=== PATIENT | male | born 1955 | race Caucasian/White ===

== ENCOUNTER 2019-01-17 07:25 | Day surgery (SDC) | payer MEDICARE, OTHER ==
[~2019-01-17] VITALS: Ht 172.7 cm; Wt 129.7 kg
[~2019-01-17 07:25] MED LIST: ACET325 PO; ALBU90OI INH; ALBU90OI6 INH; ASPI81CH PO; ASTEPRO205.5 MCG/; ATOR40TA PO; Aspirin EC81 MG PO; B-121000 MC2 PO; BUDE10.22 INH; CETI5 PO; CHOL10002 PO; CYAN1000 PO; CYCL10 PO; DEXL60CA3; DICLO GEL1 EACH TOP; FLONASE ALLERG9.9 ML NS; FLUO10 PO; Flonase 0.05% N16 GM; GABA300 PO; Gabapentin600 MG PO; HYDR1TAB94 PO; LOVA40 PO; Lipitor80 MG PO; MONT10T PO; MULTI VITAMIN1 EACH PO; Norco 10-325 T1 EACH PO; PANT40 PO; PROBIOTIC1 EAC1 PO; PROBIOTICS; Percocet 5-3251 EACH PO; Prevacid15 M2 PO; TERA5 PO; VITAMIN D-32000 UNIT PO; ZYRTEC10 M1 PO
[2019-01-17] MEDS ORDERED: Diovan160 MG PO (08:17)
== END 2019-01-17 09:49 | disposition home or self-care (01) ==
LOC: ORSCSDS 07:25
PROVIDERS: Internal Medicine Gastroenterology
PROC: 0DBL8ZX Excision of Transverse Colon, Via Natural or Artificial Opening Endoscopic, Diagnostic (ICD-10-PCS; principal; 2019-01-17 09:15)
DX: Z12.11 Encounter for screening for malignant neoplasm of colon (principal); D12.3 Benign neoplasm of transverse colon; K64.8 Other hemorrhoids; K57.30 Diverticulosis of large intestine without perforation or abscess without bleeding; K64.4 Residual hemorrhoidal skin tags; Z86.010 Personal history of colon polyps; Z80.0 Family history of malignant neoplasm of digestive organs; G47.33 Obstructive sleep apnea (adult) (pediatric); E66.01 Morbid (severe) obesity due to excess calories; Z68.41 Body mass index [BMI] 40.0-44.9, adult; Z79.82 Long term (current) use of aspirin; Z79.899 Other long term (current) drug therapy
CPT/HCPCS: 88305; J2250; J2704; J7120

== ENCOUNTER 2019-01-22 05:44 | Day surgery (SDC) | payer MEDICARE, OTHER ==
[~2019-01-22] VITALS: Ht 172.7 cm; Wt 129.4 kg
[~2019-01-22 05:44] MED LIST changes: +Diovan160 MG PO
--- NOTE | 2019-01-22 06:46 | NUR ---
Ambulatory in Day Surgery History, Chart, Medications and Allergies reviewed before start of procedure. Lungs clear T/O to Auscultation. Patient confirms NPO status and agrees with scheduled surgery. Pre-Op teaching done. Pt verbalizes understanding. Patient States Post-Procedure ride home has been arranged.
[2019-01-22] MEDS ORDERED: ALBU90OI INH (06:53)
[2019-01-22] MEDS ORDERED: VICODIN 5-3001 EACH PO (06:54)
[2019-01-22] MEDS ORDERED: VALS80 PO (06:55)
[2019-01-22] MEDS ORDERED: ATOR40TA PO (06:55)
[2019-01-22] MEDS ORDERED: TERA5 PO (06:56)
[2019-01-22] MEDS ORDERED: GABA300 PO (06:57)
[2019-01-22] MEDS ORDERED: CYCL10 PO (06:58)
[2019-01-22] MEDS ORDERED: BUDE10.22 INH (06:59)
[2019-01-22] MEDS ORDERED: VOLTAREN100 GM TOP (07:00)
[2019-01-22] MEDS ORDERED: AZELASTINE HCL6 ML BOTHEYES (07:01)
[2019-01-22] MEDS ORDERED: ONE DAILY COMP1 EACH PO (07:02)
[2019-01-22] MEDS ORDERED: Vitamin D2000 UNIT PO (07:03)
[2019-01-22] MEDS ORDERED: CETI5 PO (07:03)
[2019-01-22] MEDS ORDERED: Colace100 MG PO (07:04)
--- NOTE | 2019-01-22 10:00 | NUR ---
Patient up to Ambulate independently. Gait steady. Dressing to procedure site clean, dry, intact with no visible drainage, swelling, erythema or bruising noted. Patient States Post-Procedure ride home has been arranged. Discharged via wheelchair to private car for ride home.
== END 2019-01-22 10:00 | disposition home or self-care (01) ==
LOC: ORSCMMR 05:44 → ORD 07:30 → ORSCMMR 07:30 → ORD 10:30
PROVIDERS: Orthopaedic Surgery
PROC: 0SCC4ZZ Extirpation of Matter from Right Knee Joint, Percutaneous Endoscopic Approach (ICD-10-PCS; principal; 2019-01-22 07:30)
DX: M23.41 Loose body in knee, right knee (principal); M94.261 Chondromalacia, right knee; I10 Essential (primary) hypertension; Z87.891 Personal history of nicotine dependence; J44.9 Chronic obstructive pulmonary disease, unspecified; K21.9 Gastro-esophageal reflux disease without esophagitis; E66.01 Morbid (severe) obesity due to excess calories; Z68.41 Body mass index [BMI] 40.0-44.9, adult; Z79.899 Other long term (current) drug therapy
CPT/HCPCS: 94640; A9270-GY; J0171; J0330; J0690; J1100; J2250; J2310; J2405; J2704; J2765; J3010; J7120

== ENCOUNTER 2020-11-23 11:46 | Emergency (ER) | payer MEDICARE, OTHER ==
[~2020-11-23] VITALS: Ht 172.7 cm; Wt 127.0 kg
[~2020-11-23 11:46] MED LIST changes: +AZELASTINE HCL6 ML BOTHEYES; +Colace100 MG PO; +ONE DAILY COMP1 EACH PO; +VALS80 PO; +VICODIN 5-3001 EACH PO; +VOLTAREN100 GM TOP; +Vitamin D2000 UNIT PO
[2020-11-23 12:30] LABS: BASOPHILS ABSOLUTE AUTO 0.04 K/mm3 (0.00-0.23); BASOPHILS PERCENT AUTO 1 % (0-2); EOSINOPHILS ABSOLUTE AUTO 0.16 K/mm3 (0.00-0.68); EOSINOPHILS PERCENT AUTO 3 % (0-6); Hematocrit 42.2 % (37.0-53.0); Hemoglobin 14.1 g/dL (13.5-17.5); IMMATURE GRAN ABSOLUTE AUTO 0.03 K/mm3 (0.00-0.10); IMMATURE GRAN PERCENT AUTO 1 % (0-1); LYMPHOCYTES ABSOLUTE AUTO 1.11 K/mm3 (0.84-5.20); LYMPHOCYTES PERCENT AUTO 24 % (21-46); MONOCYTES ABSOLUTE AUTO 0.53 K/mm3 (0.16-1.47); MONOCYTES PERCENT AUTO 11 % (4-13); Mean Corpuscular HGB 29.7 pg (26.0-34.0); Mean Corpuscular HGB Conc 33.4 g/dL (31.5-36.5); Mean Corpuscular Volume 89 fL (80-100); Mean Platelet Volume 9.5 fL (9.1-12.4); NEUTROPHILS ABSOLUTE AUTO 2.81 K/mm3 (1.96-9.15); NEUTROPHILS PERCENT AUTO 60 % (41-73); Platelet Count 265 K/mm3 (150-400); RDW Coefficient Variation 12.9 % (11.7-14.2); RDW Standard Deviation 42.5 fL (35.1-46.3); Red Blood Cell Count 4.74 M/mm3 (4.30-5.90); White Blood Cell Count 4.68 K/mm3 (4.00-11.30)
[2020-11-23 12:40] LABS: Alanine Aminotransfer (ALT/SGP 34 U/L (12-78); Albumin, Blood 3.3 g/dL (3.4-5.0); Alk Phos 88 U/L (50-136); Anion Gap 1 mmol/L (6-16); Aspartate Aminotrans (AST/SGOT 30 U/L (12-37); Bilirubin, Total 0.4 mg/dL (0.1-1.0); Blood Urea Nitrogen 19 mg/dL (8-24); CO2, Blood 30 mmol/L (21-32); Calcium, Blood 8.8 mg/dL (8.5-10.1); Chloride, Blood 107 mmol/L (98-108); Creatinine, Blood 0.86 mg/dL (0.60-1.20); Globulin, Blood 3.3 g/dL (2.2-4.0); Glomerular Filtration Rate >60 (60-); Glucose, Blood 97 mg/dL (70-99); Potassium, Blood 4.7 mmol/L (3.5-5.5); Sodium, Blood 138 mmol/L (136-145); Total Protein, Blood 6.6 g/dL (6.4-8.2)
[2020-11-23 12:43] LABS: Source, Urine Clean Catch
[2020-11-23 12:50] LABS: Bilirubin, Urine Neg (Neg); Blood, Urine 4+ (Neg); Glucose Qualitative, Urine Neg (Neg); Ketones, Urine Neg (Neg); Leukocyte Esterase, Urine Neg (Neg); Nitrite, Urine Neg (Neg); Protein, Urine Neg (Neg); Urobilinogen, Urine NORM (Normal)
[2020-11-23 13:22] LABS: Appearance, Urine Clear (Clear); Color, Urine Pale Yellow (P-Yellow)
[2020-11-23 13:24] LABS: Bacteria Rare /hpf; Red Blood Cells, Urine 0-2 /hpf (0-2); Squamous Epithelial Cells Not Seen /hpf (Few); White Blood Cells, Urine Rare /hpf (0-5)
[2020-11-23] MEDS ORDERED: HYDR1TAB94 PO (14:54)
[2020-11-23] MEDS ORDERED: Flomax0.4 MG PO (14:54)
== END 2020-11-23 15:14 | disposition home or self-care (01) ==
LOC: ER 11:46
PROVIDERS: Physician Assistant
DX: N13.2 Hydronephrosis with renal and ureteral calculous obstruction (principal); Z88.1 Allergy status to other antibiotic agents; Z88.2 Allergy status to sulfonamides
CPT/HCPCS: 36415; 74176; 80053; 81001; 83690; 85025; 96374; 96375; 99284-25; J1885; J2405; J7030

== ENCOUNTER → 2021-02-25 | Outpatient (CLI) | payer MEDICARE, OTHER ==
[~2021-02-25] MED LIST changes: +Flomax0.4 MG PO
== END | disposition home or self-care (01) ==
LOC: LAB SHORT 13:26 → LAB 13:26
DX: S81.801A Unspecified open wound, right lower leg, initial encounter (principal)
CPT/HCPCS: 87070; 87075; 87205

== ENCOUNTER → 2021-08-07 | Outpatient (CLI) | payer MEDICARE, OTHER ==
[2021-08-07 16:28] LABS: BASOPHILS ABSOLUTE AUTO 0.03 K/mm3 (0.00-0.23); BASOPHILS PERCENT AUTO 1 % (0-2); EOSINOPHILS ABSOLUTE AUTO 0.27 K/mm3 (0.00-0.68); EOSINOPHILS PERCENT AUTO 6 % (0-6); Hematocrit 38.6 % (37.0-53.0); IMMATURE GRAN ABSOLUTE AUTO 0.02 K/mm3 (0.00-0.10); IMMATURE GRAN PERCENT AUTO 0 % (0-1); LYMPHOCYTES ABSOLUTE AUTO 1.28 K/mm3 (0.84-5.20); LYMPHOCYTES PERCENT AUTO 26 % (21-46); MONOCYTES ABSOLUTE AUTO 0.44 K/mm3 (0.16-1.47); MONOCYTES PERCENT AUTO 9 % (4-13); Mean Corpuscular HGB 29.4 pg (26.0-34.0); Mean Corpuscular HGB Conc 33.7 g/dL (31.5-36.5); Mean Corpuscular Volume 87 fL (80-100); Mean Platelet Volume 10.7 fL (9.1-12.4); NEUTROPHILS ABSOLUTE AUTO 2.88 K/mm3 (1.96-9.15); NEUTROPHILS PERCENT AUTO 59 % (41-73); Platelet Count 237 K/mm3 (150-400); RDW Coefficient Variation 13.5 % (11.7-14.2); RDW Standard Deviation 42.6 fL (35.1-46.3); Red Blood Cell Count 4.42 M/mm3 (4.30-5.90); White Blood Cell Count 4.92 K/mm3 (4.00-11.30)
[2021-08-07 16:32] LABS: Anion Gap 9 mmol/L (6-16); Blood Urea Nitrogen 15 mg/dL (8-24); Bun/Creatinine Ratio 16.7 (12.0-20.0); CO2, Blood 30 mmol/L (21-32); Calcium, Blood 8.6 mg/dL (8.5-10.1); Chloride, Blood 108 mmol/L (98-108); Glomerular Filtration Rate >60 (60-); Glucose, Blood 81 mg/dL (70-99); Potassium, Blood 3.8 mmol/L (3.5-5.5); Sodium, Blood 147 mmol/L (136-145)
== END ==
LOC: LAB SHORT 16:23
PROVIDERS: Physician Assistant Medical
DX: R53.83 Other fatigue (principal)
CPT/HCPCS: 80048; 85025

== ENCOUNTER 2022-02-02 09:15 | Day surgery (SDC) | payer MEDICARE, OTHER ==
[~2022-02-02] VITALS: Ht 172.7 cm; Wt 131.1 kg
[2022-02-02] MEDS ORDERED: BREO ELLIPTA 21 EAC1 (09:36)
[2022-02-02] MEDS ORDERED: LOSA50 (09:37)
[2022-02-02] MEDS ORDERED: PRAM.125 (09:38)
[2022-02-02] MEDS ORDERED: CYCL10 (09:39)
[2022-02-02] MEDS ORDERED: ASPI81CH (09:39)
[2022-02-02] MEDS ORDERED: AZELASTINE137 MCG/01 (09:39)
[2022-02-02] MEDS ORDERED: OMEP20ER (09:40)
[2022-02-02] MEDS ORDERED: CETI5 (09:40)
[2022-02-02] MEDS ORDERED: B-12500 MC2 (09:40)
[2022-02-02] MEDS ORDERED: ACET500 (09:41)
[2022-02-02] MEDS ORDERED: Voltaren100 GM (09:41)
== END 2022-02-02 11:18 | disposition home or self-care (01) ==
LOC: ORSCSDS 09:15
PROVIDERS: Internal Medicine Gastroenterology
PROC: 0DJD8ZZ Inspection of Lower Intestinal Tract, Via Natural or Artificial Opening Endoscopic (ICD-10-PCS; principal; 2022-02-02 10:15)
PROC: 0D757ZZ Dilation of Esophagus, Via Natural or Artificial Opening (ICD-10-PCS; principal; 2022-02-02 10:15)
PROC: 0DJ08ZZ Inspection of Upper Intestinal Tract, Via Natural or Artificial Opening Endoscopic (ICD-10-PCS; principal; 2022-02-02 10:15)
DX: R13.10 Dysphagia, unspecified (principal); Z12.11 Encounter for screening for malignant neoplasm of colon; Z86.010 Personal history of colon polyps; Z80.0 Family history of malignant neoplasm of digestive organs; K22.89 Other specified disease of esophagus; Z98.84 Bariatric surgery status; K57.30 Diverticulosis of large intestine without perforation or abscess without bleeding; K64.8 Other hemorrhoids; K64.4 Residual hemorrhoidal skin tags; G47.33 Obstructive sleep apnea (adult) (pediatric); J44.9 Chronic obstructive pulmonary disease, unspecified; E78.00 Pure hypercholesterolemia, unspecified; Z79.899 Other long term (current) drug therapy; E66.01 Morbid (severe) obesity due to excess calories; Z68.41 Body mass index [BMI] 40.0-44.9, adult; Z79.82 Long term (current) use of aspirin
CPT/HCPCS: 43235; 43450; G0105; J2370; J2704; J3010; J7120

== ENCOUNTER 2022-05-26 17:52 | Emergency (ER) | payer MEDICARE, OTHER ==
[~2022-05-26] VITALS: Ht 172.7 cm; Wt 132.4 kg
[~2022-05-26 17:52] MED LIST changes: +ACET500; +ASPI81CH; +AZELASTINE137 MCG/01; +B-12500 MC2; +BREO ELLIPTA 21 EAC1; +CETI5; +CYCL10; +LOSA50; +OMEP20ER; +PRAM.125; +Voltaren100 GM
[2022-05-26 18:27] LABS: BASOPHILS ABSOLUTE AUTO 0.04 K/mm3 (0.00-0.23); BASOPHILS PERCENT AUTO 1 % (0-2); EOSINOPHILS ABSOLUTE AUTO 0.32 K/mm3 (0.00-0.68); EOSINOPHILS PERCENT AUTO 5 % (0-6); Hemoglobin 14.3 g/dL (13.5-17.5); IMMATURE GRAN ABSOLUTE AUTO 0.03 K/mm3 (0.00-0.10); IMMATURE GRAN PERCENT AUTO 0 % (0-1); LYMPHOCYTES PERCENT AUTO 31 % (21-46); MONOCYTES ABSOLUTE AUTO 0.66 K/mm3 (0.16-1.47); MONOCYTES PERCENT AUTO 10 % (4-13); Mean Corpuscular HGB 29.2 pg (26.0-34.0); Mean Corpuscular Volume 86 fL (80-100); Mean Platelet Volume 9.8 fL (9.1-12.4); NEUTROPHILS ABSOLUTE AUTO 3.74 K/mm3 (1.96-9.15); NEUTROPHILS PERCENT AUTO 54 % (41-73); Platelet Count 276 K/mm3 (150-400); RDW Coefficient Variation 13.3 % (11.7-14.2); RDW Standard Deviation 41.2 fL (35.1-46.3); White Blood Cell Count 6.89 K/mm3 (4.00-11.30)
[2022-05-26 18:43] LABS: Source, Urine Clean Catch
[2022-05-26 18:49] LABS: Appearance, Urine Clear (Clear); Bilirubin, Urine Neg (Neg); Blood, Urine Neg (Neg); Color, Urine Yellow (P-Yellow); Glucose Qualitative, Urine Neg (Neg); Ketones, Urine Neg (Neg); Leukocyte Esterase, Urine Neg (Neg); Nitrite, Urine Neg (Neg); Protein, Urine Neg (Neg); Specific Gravity, Urine 1.015 (1.003-1.022); Urobilinogen, Urine NORM (Normal)
[2022-05-26 18:58] LABS: Albumin, Blood 3.5 g/dL (3.4-5.0); Albumin/Globulin Ratio 1.1 (0.8-1.8); Bilirubin, Total 0.5 mg/dL (0.1-1.0); Creatinine, Blood 0.83 mg/dL (0.60-1.20); Globulin, Blood 3.3 g/dL (2.2-4.0); Potassium, Blood 4.3 mmol/L (3.5-5.5); Total Protein, Blood 6.8 g/dL (6.4-8.2)
== END 2022-05-26 21:40 | disposition home or self-care (01) ==
LOC: ER 17:52
PROVIDERS: Student in an Organized Health Care Education/Training Program
DX: N20.0 Calculus of kidney (principal)
CPT/HCPCS: 36415; 74176; 80053; 81003; 85025; J1170; J1885; J2405

== ENCOUNTER 2022-06-07 17:31 | Emergency (ER) | payer MEDICARE, OTHER ==
[~2022-06-07] VITALS: Ht 172.7 cm; Wt 132.0 kg
[2022-06-07] MEDS ORDERED: Percocet 5-3251 EACH PO ×2 (18:44→19:15)
== END 2022-06-07 18:44 | disposition home or self-care (01) ==
LOC: ER 17:31
DX: N20.0 Calculus of kidney (principal); Z88.2 Allergy status to sulfonamides; Z88.1 Allergy status to other antibiotic agents; Z88.6 Allergy status to analgesic agent; Z79.899 Other long term (current) drug therapy
CPT/HCPCS: 99283

== ENCOUNTER 2022-06-26 22:50 | Emergency (ER) | payer MEDICARE, BC ==
[~2022-06-26] VITALS: Ht 172.7 cm; Wt 127.0 kg
[2022-06-27 00:22] LABS: BASOPHILS ABSOLUTE AUTO 0.06 K/mm3 (0.00-0.23); BASOPHILS PERCENT AUTO 1 % (0-2); EOSINOPHILS ABSOLUTE AUTO 0.26 K/mm3 (0.00-0.68); EOSINOPHILS PERCENT AUTO 3 % (0-6); Hematocrit 39.5 % (37.0-53.0); Hemoglobin 13.3 g/dL (13.5-17.5); IMMATURE GRAN ABSOLUTE AUTO 0.04 K/mm3 (0.00-0.10); IMMATURE GRAN PERCENT AUTO 0 % (0-1); LYMPHOCYTES ABSOLUTE AUTO 1.74 K/mm3 (0.84-5.20); LYMPHOCYTES PERCENT AUTO 19 % (21-46); MONOCYTES ABSOLUTE AUTO 1.04 K/mm3 (0.16-1.47); MONOCYTES PERCENT AUTO 11 % (4-13); Mean Corpuscular HGB 29.2 pg (26.0-34.0); Mean Corpuscular HGB Conc 33.7 g/dL (31.5-36.5); Mean Corpuscular Volume 87 fL (80-100); Mean Platelet Volume 9.2 fL (9.1-12.4); NEUTROPHILS ABSOLUTE AUTO 6.22 K/mm3 (1.96-9.15); NEUTROPHILS PERCENT AUTO 67 % (41-73); Platelet Count 340 K/mm3 (150-400); RDW Coefficient Variation 12.7 % (11.7-14.2); RDW Standard Deviation 40.1 fL (35.1-46.3); Red Blood Cell Count 4.55 M/mm3 (4.30-5.90); White Blood Cell Count 9.36 K/mm3 (4.00-11.30)
[2022-06-27 00:44] LABS: Albumin, Blood 3.1 g/dL (3.4-5.0); Albumin/Globulin Ratio 0.8 (0.8-1.8); Bilirubin, Total 0.5 mg/dL (0.1-1.0); Calcium, Blood 8.8 mg/dL (8.5-10.1); Creatinine, Blood 0.94 mg/dL (0.60-1.20); Globulin, Blood 3.9 g/dL (2.2-4.0); Potassium, Blood 4.1 mmol/L (3.5-5.5)
[2022-06-27 01:42] LABS: Source, Urine Clean Catch
[2022-06-27 01:46] LABS: Bilirubin, Urine Neg (Neg); Blood, Urine 3+ (Neg); Glucose Qualitative, Urine Neg (Neg); Ketones, Urine Neg (Neg); Leukocyte Esterase, Urine 1+ (Neg); Nitrite, Urine Neg (Neg); Protein, Urine 2+ (Neg); Urobilinogen, Urine NORM (Normal)
[2022-06-27 01:49] LABS: Appearance, Urine Clear (Clear); Color, Urine Yellow (P-Yellow)
[2022-06-27 01:52] LABS: Bacteria Rare /hpf; Squamous Epithelial Cells Not Seen /hpf (Few)
== END 2022-06-27 02:57 | disposition home or self-care (01) ==
LOC: ER 22:50
PROVIDERS: Student in an Organized Health Care Education/Training Program
DX: R10.9 Unspecified abdominal pain (principal); R31.9 Hematuria, unspecified; Z88.8 Allergy status to other drugs, medicaments and biological substances; Z88.2 Allergy status to sulfonamides; Z79.899 Other long term (current) drug therapy; Z79.82 Long term (current) use of aspirin
CPT/HCPCS: 36415; 74176; 80053; 81001; 85025; 87077; 87086; 87186; 96374; 96375; 99284-25; A9270; J1170; J1885; J3360; J7030

== ENCOUNTER 2023-07-19 08:55 | Day surgery (SDC) | payer MEDICARE, BC ==
[~2023-07-19] VITALS: Ht 172.7 cm; Wt 136.0 kg
[~2023-07-19 08:55] MED LIST changes: -ACET500; -ASPI81CH; +ATOR80 PO; +Aspir 8181 MG PO; +B-121000 MC3 PO; -B-12500 MC2; -BREO ELLIPTA 21 EAC1; +BUDESONIDE-FO10.2 G2 INH; +FLONASE ALLERG9.9 M2; +HYDCHL25 PO; +MELO7.5; +MONT10T; +OMEPRAZOLE MAGN20 MG PO; +VOLTAREN ARTHRI20 GM TOP
[2023-07-19 10:37] VITALS: BP 143/65
--- NOTE | 2023-07-19 11:00 | NUR ---
07/19/23 1100 aRysa Clarke LIDOCAINE 4% AEROSOL ADMINISTERED TO PATIENT AT [address] MCLAUGHLIN WRITTEN ORDER. PT TRIXIE ARAYA.
== END 2023-07-19 10:46 | disposition home or self-care (01) ==
LOC: ORSCSDS 08:55
PROVIDERS: Internal Medicine Gastroenterology
PROC: 0D757ZZ Dilation of Esophagus, Via Natural or Artificial Opening (ICD-10-PCS; principal; 2023-07-19 10:15)
PROC: 0DJ08ZZ Inspection of Upper Intestinal Tract, Via Natural or Artificial Opening Endoscopic (ICD-10-PCS; principal; 2023-07-19 10:15)
DX: R13.10 Dysphagia, unspecified (principal); I10 Essential (primary) hypertension; J44.9 Chronic obstructive pulmonary disease, unspecified; K21.9 Gastro-esophageal reflux disease without esophagitis; G47.33 Obstructive sleep apnea (adult) (pediatric); Z98.84 Bariatric surgery status; Z79.82 Long term (current) use of aspirin; Z79.899 Other long term (current) drug therapy
CPT/HCPCS: J2001; J2704; J7120

== ENCOUNTER 2024-04-26 04:26 | Day surgery (SDC) | payer MEDICARE, BC ==
[~2024-04-26 04:26] MED LIST changes: +LOSA50 PO; +PRAMIPEXOLE D0.25 M1 PO; +PRAVASTATIN SOD20 MG PO
[2024-04-26] MEDS ORDERED: INCLISIRAN SODIUM 284 MG/1.5 ML SYRINGE SC SCH (06:00)
[2024-04-26 10:54] VITALS: BP 144/84
[2024-04-26] MEDS ORDERED: RABE20 PO (11:11)
[2024-04-26] MEDS ORDERED: ZYRTEC10 M2 PO (11:11)
[2024-04-26 11:18] VITALS: BP 135/66
[2024-04-26 11:35] VITALS: BP 113/64
--- NOTE | 2024-04-26 11:42 | NUR ---
Pt c/o slight headache and bounding heart rate at 1118 (24 min after med given.) VS taken, HR remains in the 70s, same as pre medication. Pt denies CP, SOB, itching, hives or any other syptoms. Stayed in pt's room and visited with him another 15 min. He states headache is gone and heart feels less "bounding." VS stable. Pt educated on when to seek medical assistance if any reaction occurs post injection. He verbalized understanding. Pt discharged home, VSS, steady on his feet at 1138.
== END 2024-04-26 11:38 | disposition home or self-care (01) ==
LOC: ATC 04:26
DX: E78.5 Hyperlipidemia, unspecified (principal); J45.909 Unspecified asthma, uncomplicated; Z88.2 Allergy status to sulfonamides; Z88.8 Allergy status to other drugs, medicaments and biological substances; Z79.899 Other long term (current) drug therapy; Z79.82 Long term (current) use of aspirin
CPT/HCPCS: 96372; J1306

== ENCOUNTER → 2024-05-20 | Outpatient (CLI) | payer MEDICARE, BC ==
[~2024-05-20] MED LIST changes: +RABE20 PO; +ZYRTEC10 M2 PO
== END | disposition home or self-care (01) ==
LOC: LAB SHORT 09:53 → LAB 09:53
DX: T81.30XA Disruption of wound, unspecified, initial encounter (principal)
CPT/HCPCS: 87070; 87075; 87205

== ENCOUNTER 2024-07-25 13:25 | Day surgery (SDC) | payer MEDICARE, BC ==
[2024-07-25 15:30] VITALS: BP 135/74
[2024-07-26] MEDS ORDERED: INCLISIRAN SODIUM 284 MG/1.5 ML SYRINGE SC SCH (06:00)
== END 2024-07-25 15:52 | disposition home or self-care (01) ==
LOC: ATC 13:25
DX: E78.5 Hyperlipidemia, unspecified (principal); I10 Essential (primary) hypertension; K76.0 Fatty (change of) liver, not elsewhere classified; N40.0 Benign prostatic hyperplasia without lower urinary tract symptoms; G47.30 Sleep apnea, unspecified; J45.909 Unspecified asthma, uncomplicated; Z79.82 Long term (current) use of aspirin; Z79.899 Other long term (current) drug therapy; Z88.2 Allergy status to sulfonamides; Z88.8 Allergy status to other drugs, medicaments and biological substances; Z86.0100 Personal history of colon polyps, unspecified; Z90.49 Acquired absence of other specified parts of digestive tract
CPT/HCPCS: 96372; J1306

== ENCOUNTER 2024-08-17 17:17 | Emergency (ER) | payer MEDICARE, BC ==
[~2024-08-17] VITALS: Ht 172.7 cm; Wt 104.3 kg
[2024-08-17 17:44] VITALS: BP 123/72
[2024-08-17] MEDS ORDERED: Pramipexole DI-HCL 1 Mg Tab PO ONE (17:45)
== END 2024-08-17 18:42 | disposition home or self-care (01) ==
LOC: ER 17:17
DX: G25.81 Restless legs syndrome (principal); G47.33 Obstructive sleep apnea (adult) (pediatric); E78.5 Hyperlipidemia, unspecified; Z79.82 Long term (current) use of aspirin; Z79.51 Long term (current) use of inhaled steroids; Z79.899 Other long term (current) drug therapy; Z88.1 Allergy status to other antibiotic agents; Z88.2 Allergy status to sulfonamides
CPT/HCPCS: 99282; A9270

== ENCOUNTER 2024-12-23 05:35 | Day surgery (SDC) | payer OTHER ==
[~2024-12-23] VITALS: Ht 170 cm; Wt 109.0 kg
[2024-12-23] VITALS (13 sets, daily range): BP systolic 108–144; BP diastolic 45–64
[~2024-12-23 05:35] MED LIST changes: -LOSA50 PO; +LOSARTAN POTAS100 M1 PO; +RAPATHA INJ
[2024-12-23] MEDS ORDERED: Lactated Ringer's 1,000 ML IV SCH ×2 (06:20→10:05)
[2024-12-23] MEDS ORDERED: Acetaminophen 500 MG Tab PO SCH ×2 (06:20→16:00)
[2024-12-23] MEDS ORDERED: Chlorhexidine Mouth Care 15 ML UDC MT SCH (06:20)
[2024-12-23] MEDS ORDERED: CeFAZolin Sodium 2,000 MG in NS 100 ML IV SCH ×2 (06:20→16:00)
[2024-12-23] MEDS ORDERED: OxyCODONE HCL 10 MG TABCR PO SCH (06:20)
[2024-12-23] MEDS ORDERED: Tranexamic Acid 100 ML IV SCH (06:20)
[2024-12-23] MEDS ORDERED: Ropivacaine 0.5% HCl/Pf 123.125 MG,EPINEPHrine HCL 0.25 MG,Ketorolac Tromethamine 15 MG... INFIL SCH (06:20)
[2024-12-23] MEDS ORDERED: propofoL 100 ML IV ONE (07:04)
[2024-12-23] MEDS ORDERED: Midazolam HCl 1MG / ML 2ML Vial ONE (07:09)
[2024-12-23] MEDS ORDERED: OXYCODONE-ACET1 EAC3 PO (07:17)
[2024-12-23] MEDS ORDERED: RABEPRAZOLE SOD20 MG PO (07:17)
[2024-12-23] MEDS ORDERED: RABE20 PO (07:18)
[2024-12-23] MEDS ORDERED: ALBU2.5V5 INH (07:18)
[2024-12-23] MEDS ORDERED: WIXELA 500-501 EAC1 INH (07:19)
[2024-12-23] MEDS ORDERED: LEQVIO284 MG/1.5 SC (07:20)
[2024-12-23] MEDS ORDERED: OXYC5 PO (07:20)
[2024-12-23] MEDS ORDERED: AZELASTINE137 MCG/01 (07:21)
[2024-12-23] MEDS ORDERED: Flonase 0.05% N16 GM (07:21)
[2024-12-23] MEDS ORDERED: Norco 5-325 Ta1 EACH PO (07:21)
[2024-12-23] MEDS ORDERED: REPATHA SY140 MG/1 M SC (07:23)
--- NOTE | 2024-12-23 07:30 | NUR ---
History, Chart, Medications and Allergies reviewed before start of procedure. Patient up to Ambulate independently. Gait steady. Pre-Op teaching done. Pt verbalizes understanding. Patient confirms NPO status and agrees with scheduled surgery. Patient reports completing Chlorhexadine shower X2 prior to admission to hospital. Surgical site prepped with 2% Chlorhexidine cloth wipe. Patient States Post-Procedure ride home has been arranged.
[2024-12-23] MEDS ORDERED: Phenylephrine HCl 100 MCG/ML-NS 10MLSYR (1MG/10ML) ONE (07:56)
--- NOTE | 2024-12-23 08:20 | NUR ---
12/23/24 0820 Bharti Mckinney SPINAL BLOCK COMPLETED BY UPON ENTRY TO OR.
[2024-12-23] MEDS ORDERED: Dexamethasone Sod Phos 10 MG/ML 1ML VIAL ONE (08:24)
[2024-12-23] MEDS ORDERED: ePHEDrine Sulfate 50 MG/ML 1ML Injection ONE (08:26)
[2024-12-23] MEDS ORDERED: Ondansetron HCl 2 MG / ML 2ML Vial IV PRN ×2 (09:00→10:00)
[2024-12-23] MEDS ORDERED: FentaNYL Citrate 50 MCG/ML 2 ML Injection IV PRN ×2 (09:00)
[2024-12-23] MEDS ORDERED: HYDROmorphone HCl/Pf 1MG SYR IV PRN ×3 (09:00→09:55)
[2024-12-23] MEDS ORDERED: Bisacodyl 10 MG Supp PR PRN (09:50)
[2024-12-23] MEDS ORDERED: Albuterol 2.5 MG/3 ML VIAL INH PRN (09:50)
[2024-12-23] MEDS ORDERED: Promethazine HCl 25 MG Tab PO PRN (09:50)
[2024-12-23] MEDS ORDERED: DiphenhydrAMINE HCL 25 MG Cap PO PRN (09:55)
[2024-12-23] MEDS ORDERED: Metoclopramide HCl 5MG / ML 2ML Vial IV PRN (10:00)
[2024-12-23] MEDS ORDERED: OxyCODONE HCL 5 MG TAB PO PRN ×2 (10:00)
[2024-12-23] MEDS ORDERED: Magnesium Hydroxide Conc 10 ML UDC PO PRN (10:00)
[2024-12-23] MEDS ORDERED: Loratadine 10 MG Tab PO PRN (10:05)
--- NOTE | 2024-12-23 10:45 | NUR ---
POST-OP PATIENT TO THE ROOM @1015, AQUACEL TO L KNEE C/D/I. ICE MACHINE, SCDS, AND TEDS IN PLACE. DENIES N/V, PAIN AT THIS TIME. ABLE TO WIGGLE TOES AND LIFT BILAT FEET. REPORTS DECREASED SENSATION TO BILAT FEET. LUNGS SOUND CLEAR. DENIES SOB, ON RA, 95-98%. VSS. CALL LIGHT IN REACH.
[2024-12-23] MEDS ORDERED: Ketorolac Tromethamine 15mg Vial IV SCH (12:00)
--- NOTE | 2024-12-23 17:11 | NUR ---
DISCHARGE PATIENT VOIDING, WORKS WITH PT, PRESCRIPTIONS PICKED UP FROM PHARMACY AND ALL BELONGINGS PACKED AND SENT WITH PATIENT. IV TAKEN OUT INTACT. PATIENT IS WHEELED OUT TO PRIVATE CAR.
[2024-12-23] MEDS ORDERED: Montelukast Sodium 10 MG Tab PO SCH (21:00)
[2024-12-23] MEDS ORDERED: Docusate Sodium 100 MG Cap PO SCH (21:00)
[2024-12-23] MEDS ORDERED: Pramipexole DI-HCL 0.25 MG Tab PO SCH (21:00)
[2024-12-23] MEDS ORDERED: Azelastine 0.1% Nasal Spray SCH (21:00)
[2024-12-24] MEDS ORDERED: Aspirin 81 MG Chew PO SCH (09:00)
== END 2024-12-23 17:23 | disposition home or self-care (01) ==
LOC: ORSCMMR 05:35 → ORD 07:30 → SURS 10:01 → ORSCMMR 17:23
PROVIDERS: Orthopaedic Surgery
PROC: 0SRD0JA Replacement of Left Knee Joint with Synthetic Substitute, Uncemented, Open Approach (ICD-10-PCS; principal; 2024-12-23 07:30)
DX: M17.12 Unilateral primary osteoarthritis, left knee (principal); I12.9 Hypertensive chronic kidney disease with stage 1 through stage 4 chronic kidney disease, or unspecified chronic kidney disease; N18.9 Chronic kidney disease, unspecified; J44.89 Other specified chronic obstructive pulmonary disease; K21.9 Gastro-esophageal reflux disease without esophagitis; Z79.899 Other long term (current) drug therapy; E66.9 Obesity, unspecified; Z68.36 Body mass index [BMI] 36.0-36.9, adult; E78.5 Hyperlipidemia, unspecified; G47.33 Obstructive sleep apnea (adult) (pediatric); J44.9 Chronic obstructive pulmonary disease, unspecified
CPT/HCPCS: 27447; 0055T; 73560-LT; 82947; 97110; 97116; 97162; 97530; A9270; C1713; C1776; J0165; J0690; J0735; J1100; J1885; J2250; J2371; J2704; J2795; J7120

== ENCOUNTER 2024-12-25 23:16 | Emergency (ER) | payer OTHER, MEDICARE, BC ==
[~2024-12-25] VITALS: Ht 172.7 cm; Wt 104.3 kg
[~2024-12-25 23:16] MED LIST changes: +ALBU2.5V5 INH; +LEQVIO284 MG/1.5 SC; +Norco 5-325 Ta1 EACH PO; +OXYC5 PO; +OXYCODONE-ACET1 EAC3 PO; +RABEPRAZOLE SOD20 MG PO; +REPATHA SY140 MG/1 M SC; +WIXELA 500-501 EAC1 INH
[2024-12-25] MEDS ORDERED: COLACE100 MG PO (23:22)
[2024-12-26 01:00] VITALS: BP 120/67
== END 2024-12-26 01:21 | disposition home or self-care (01) ==
LOC: ER 23:16
DX: G89.18 Other acute postprocedural pain (principal); M25.562 Pain in left knee; Z96.652 Presence of left artificial knee joint; E78.5 Hyperlipidemia, unspecified; G47.33 Obstructive sleep apnea (adult) (pediatric); Z90.49 Acquired absence of other specified parts of digestive tract; Z88.2 Allergy status to sulfonamides; Z88.8 Allergy status to other drugs, medicaments and biological substances; Z79.82 Long term (current) use of aspirin; Z79.899 Other long term (current) drug therapy
CPT/HCPCS: 99283

== ENCOUNTER 2025-05-28 07:40 | Day surgery (SDC) | payer MEDICARE, BC ==
[~2025-05-28] VITALS: Ht 172.7 cm; Wt 112.9 kg
[~2025-05-28 07:40] MED LIST changes: +COLACE100 MG PO
[2025-05-28] MEDS ORDERED: DULO30 PO (08:02)
[2025-05-28] MEDS ORDERED: Benzocaine Oral Spray 0.5ML UD ONE (08:03)
[2025-05-28] MEDS ORDERED: WIXELA 250-501 EAC1 (08:07)
[2025-05-28] MEDS ORDERED: HYDROCODONE-AC1 EA19 PO (08:08)
[2025-05-28] MEDS ORDERED: TIZA4 PO (08:08)
[2025-05-28] MEDS ORDERED: PROBIOTIC1 EA13 PO (08:09)
[2025-05-28] MEDS ORDERED: ACET500 PO (08:09)
[2025-05-28] MEDS ORDERED: CETI5 PO (08:09)
[2025-05-28 09:51] VITALS: BP 125/64
== END 2025-05-28 09:53 | disposition home or self-care (01) ==
LOC: ORSCSDS 07:40
DX: Z12.11 Encounter for screening for malignant neoplasm of colon (principal); Z86.0100 Personal history of colon polyps, unspecified; R13.10 Dysphagia, unspecified; D12.2 Benign neoplasm of ascending colon; D12.4 Benign neoplasm of descending colon; Z98.84 Bariatric surgery status; K21.9 Gastro-esophageal reflux disease without esophagitis; Z80.0 Family history of malignant neoplasm of digestive organs; K44.9 Diaphragmatic hernia without obstruction or gangrene; K57.30 Diverticulosis of large intestine without perforation or abscess without bleeding; K64.4 Residual hemorrhoidal skin tags; J44.89 Other specified chronic obstructive pulmonary disease; G47.33 Obstructive sleep apnea (adult) (pediatric); E78.00 Pure hypercholesterolemia, unspecified; Z79.899 Other long term (current) drug therapy; E66.9 Obesity, unspecified; Z68.37 Body mass index [BMI] 37.0-37.9, adult
CPT/HCPCS: 88305; A9270; C1769; J2704; J7120